=== PATIENT | male | born 1970 | race African-American/Black ===

== ENCOUNTER 2018-08-28 09:20 | Emergency (ER) | payer MEDICAID, OTHER ==
[~2018-08-28] VITALS: Ht 205.7 cm; Wt 146.0 kg
[2018-08-28 10:29] LABS: CLARITY URINE CLEAR (CLEAR); COLOR URINE DARK YELLOW (YELLOW); KETONES URINE TRACE (NEGATIVE); LEUKOCYTE ESTERASE URINE NEGATIVE (NEGATIVE); NITRITE URINE NEGATIVE (NEGATIVE); OCCULT BLOOD URINE NEGATIVE (NEGATIVE); PROTEIN URINE 1+ (NEGATIVE); SPECIFIC GRAVITY URINE 1.037 (1.005-1.030)
[2018-08-28] MEDS ORDERED: ATENOLOL 50 MG TABLET PO ONE (11:45)
[2018-08-28] MEDS ORDERED: ALLOPURINOL 300 MG TABLET PO ONE (11:45)
[2018-08-28] MEDS ORDERED: COLCHICINE 0.6MG TABLET PO ONE (11:45)
[2018-08-28 12:18] LABS: CHLORIDE 105 mEq/L (98-107)
[2018-08-28 12:24] LABS: BASOPHILS % 0.6 % (0.0-2.0); HEMATOCRIT. 42.3 % (42.0-52.0); HEMOGLOBIN. 13.9 g/dL (14.0-18.0); MEAN CORPUSCULAR HEMOGLOBIN 30.2 pg (28.0-32.0); MEAN PLATELET VOLUME 7.5 fl (7.4-10.4); MONOCYTES % 13.7 % (2.0-8.0); NEUTROPHILS % 75.7 % (40.0-76.0); PLATELET 406 x1000/uL (130-400); RED BLOOD CELL COUNT 4.61 mill/uL (4.7-6.1); RED CELL DISTRIBUTION WIDTH 14.8 % (11.6-14.6)
[2018-08-28 12:35] LABS: INR 1.1; PROTHROMBIN TIME 10.6 sec (9.1-11.1)
[2018-08-28] MEDS ORDERED: IBUPROFEN 800MG TABLET PO ONE (13:15)
[2018-08-28] MEDS ORDERED: OXYCODONE HCL/ACETAMINOPHEN 5/325MG TABLET PO ONE (13:15)
[2018-08-28 13:35] VITALS: BP 182/122
== END 2018-08-28 14:45 | disposition home or self-care (01) ==
LOC: ER 09:20
DX: M10.9 Gout, unspecified (principal); Z76.0 Encounter for issue of repeat prescription; E78.00 Pure hypercholesterolemia, unspecified; I10 Essential (primary) hypertension
CPT/HCPCS: 36415; 71045; 73560; 86850; 86900; 99284

== ENCOUNTER 2024-09-07 09:49 | Inpatient (IN) | payer MEDICAID, OTHER ==
[~2024-09-07] VITALS: Ht 205.7 cm; Wt 119.3 kg
[2024-09-07 10:39] LABS: CHLORIDE 98 mEq/L (98-107); POTASSIUM 3.2 mEq/L (3.5-5.1); SODIUM 140 mEq/L (136-145)
[2024-09-07 10:40] LABS: CALCIUM 9.3 mg/dL (8.7-10.4); CARBON DIOXIDE 30 mEq/L (21-32)
[2024-09-07 10:43] LABS: BASOPHILS % 0.4 % (0.0-2.0); EOSINOPHILS % 0.3 % (0.0-5.0); HEMOGLOBIN. 16.6 g/dL (14.0-18.0); MEAN CORPUSCULAR HEMOGLOBIN 31.2 pg (28.0-32.0); MEAN CORPUSCULAR HGB CONC 33.2 g/dL (31.0-37.0); MEAN PLATELET VOLUME 8.8 fl (7.4-10.4); MONOCYTES % 10.7 % (2.0-8.0); NEUTROPHILS % 64.6 % (40.0-76.0); PLATELET 171 x1000/uL (130-400); RED BLOOD CELL COUNT 5.32 mill/uL (4.7-6.1); RED CELL DISTRIBUTION WIDTH 18.4 % (11.6-14.6); WHITE BLOOD COUNT 8.3 x1000/uL (4.5-11.0)
[2024-09-07 10:46] LABS: TROPONIN I HIGH SENSITIVITY 10 ng/L (3.0-53)
[2024-09-07 11:04] LABS: CREATININE 1.9 mg/dL (0.6-1.3); GLUCOSE 172 mg/dL (70-105); UREA NITROGEN BLOOD 16 mg/dL (9-23)
[2024-09-07] MEDS ORDERED: ONDANSETRON HCL 4MG/2ML INJ IV PRN (13:30)
[2024-09-07] MEDS ORDERED: HYDROCODONE/ACETAMINOPHEN 5/325MG TABLET PO PRN (13:30)
[2024-09-07] MEDS ORDERED: GUAIFENESIN 200MG/10ML SUGAR FREE UDC PO PRN (13:30)
[2024-09-07] MEDS ORDERED: DOCUSATE SODIUM 100MG CAPSULE PO PRN (13:30)
[2024-09-07] MEDS ORDERED: NALOXONE HCL 0.4MG/ML VIAL IV PRN (14:00)
[2024-09-07] MEDS ORDERED: POTASSIUM CHLORIDE 40 MEQ in DEXT 5% WATER 230 ML IV ONE (14:00)
[2024-09-07] MEDS: SODIUM CHLORIDE 0.45% 1,000 ML IV SCH (14:23)
[2024-09-07] MEDS ORDERED: IOHEXOL-350 100 ML BOTTLE ONE (14:50)
[2024-09-07] MEDS: ENOXAPARIN 150MG/ML SYR SUBCUT NR (14:57)
[2024-09-07] MEDS: POTASSIUM CHLORIDE 20 MEQ in DEXT 5% WATER 90 ML IV SCH (15:01)
[2024-09-07] MEDS ORDERED: HEPARIN 25,000 UNITS PREMIX 250 ML IV PRN ×2 (15:15→17:00)
[2024-09-07 15:38] LABS: PROTHROMBIN TIME 11.3 sec (9.6-11.0)
[2024-09-07 16:03] LABS: BASOPHILS % 0.7 % (0.0-2.0); EOSINOPHILS % 0.1 % (0.0-5.0); HEMATOCRIT. 46.6 % (42.0-52.0); HEMOGLOBIN. 15.6 g/dL (14.0-18.0); LYMPHOCYTES % 18.9 % (20.0-50.0); MEAN CORPUSCULAR HEMOGLOBIN 31.2 pg (28.0-32.0); MEAN CORPUSCULAR HGB CONC 33.5 g/dL (31.0-37.0); MEAN CORPUSCULAR VOLUME 93.3 fL (80.0-94.0); MEAN PLATELET VOLUME 8.9 fl (7.4-10.4); MONOCYTES % 12.9 % (2.0-8.0); NEUTROPHILS % 67.4 % (40.0-76.0); PLATELET 159 x1000/uL (130-400); RED CELL DISTRIBUTION WIDTH 18.1 % (11.6-14.6); WHITE BLOOD COUNT 9.3 x1000/uL (4.5-11.0)
[2024-09-07 16:14] LABS: CREATINE KINASE MB FRACTION 0.7 ng/mL (0.5-3.6)
[2024-09-07 16:17] LABS: PARTIAL THROMBOPLASTIN TIME 24.8 sec (23.4-31.0)
[2024-09-07] MEDS ORDERED: HEPARIN 5000 UNITS/ML VIAL IV SCH (17:00)
[2024-09-07] MEDS ORDERED: HEPARIN BOLUS PRN aPTT 37-44 IV ×3 (17:15→20:00)
[2024-09-07] MEDS ORDERED: HEPARIN 80 UNITS/KG BOLUS IV SCH (17:15)
[2024-09-07] MEDS ORDERED: HEPARIN BOLUS PRN aPTT <36 IV ×3 (17:15→20:00)
[2024-09-07] MEDS ORDERED: HEPARIN 25,000 UNITS PREMIX 250 ML IV SCH (17:15)
[2024-09-07] MEDS: HEPARIN 80 UNITS/KG BOLUS IV SCH (17:39)
[2024-09-07] MEDS ORDERED: ENOXAPARIN 30MG/0.3ML SYR SUBCUT SCH (18:00)
[2024-09-07] MEDS: HEPARIN 25,000 UNITS PREMIX 250 ML IV SCH (18:12)
[2024-09-07] MEDS: FAMOTIDINE 20MG TABLET PO SCH (20:59)
[2024-09-07 22:29] VITALS: BP 111/69; PULSE 69; RESP 16; TEMP 37.5
[2024-09-07] MEDS ORDERED: HEPARIN 5000 UNITS/ML VIAL IV PRN ×2 (23:00)
[2024-09-08] VITALS: BP 141/94; PULSE 73; RESP 20; TEMP 36.4; O2SAT 99
[2024-09-08 00:12] LABS: CREATINE KINASE 131 IU/L (46-171); CREATINE KINASE MB FRACTION < 0.5 ng/mL (0.5-3.6); TROPONIN I HIGH SENSITIVITY 6 ng/L (3.0-53)
[2024-09-08 04:00] VITALS: BP 126/73; PULSE 70; RESP 22; TEMP 36.9; O2SAT 95
[2024-09-08 08:00] VITALS: BP 138/86; PULSE 70; RESP 20; TEMP 36.7; O2SAT 99
[2024-09-08 08:38] LABS: BASOPHILS % 0.5 % (0.0-2.0); EOSINOPHILS % 1.2 % (0.0-5.0); HEMATOCRIT. 43.7 % (42.0-52.0); HEMOGLOBIN. 14.6 g/dL (14.0-18.0); LYMPHOCYTES % 32.1 % (20.0-50.0); MEAN CORPUSCULAR HGB CONC 33.3 g/dL (31.0-37.0); MEAN PLATELET VOLUME 7.8 fl (7.4-10.4); NEUTROPHILS % 54.2 % (40.0-76.0); PLATELET 120 x1000/uL (130-400); RED CELL DISTRIBUTION WIDTH 18.5 % (11.6-14.6); WHITE BLOOD COUNT 8.2 x1000/uL (4.5-11.0)
[2024-09-08 09:20] LABS: HEPATITIS B SURFACE ANTIGEN NEGATIVE (Negative)
[2024-09-08 09:41] LABS: HEPATITIS C AB NON REACTIVE (Neg) (Negative)
[2024-09-08 10:24] LABS: CALCIUM 8.2 mg/dL (8.7-10.4); CARBON DIOXIDE 30 mEq/L (21-32); CHLORIDE 99 mEq/L (98-107); POTASSIUM 2.9 mEq/L (3.5-5.1); SODIUM 137 mEq/L (136-145)
[2024-09-08 10:29] LABS: CREATININE 1.1 mg/dL (0.6-1.3); GLUCOSE 98 mg/dL (70-105)
[2024-09-08 10:30] LABS: LDL CHOLESTEROL 27 mg/dL (5-100); TRIGLYCERIDE 58 mg/dL (0-150); UREA NITROGEN BLOOD 15 mg/dL (9-23)
[2024-09-08 10:31] LABS: ALANINE AMINOTRANSFERASE 53 IU/L (10-49); ALBUMIN 3.3 g/dL (3.2-4.8); ASPARTATE AMINOTRANSFERASE 91 IU/L (<34); CHOLESTEROL 121 mg/dL (<200); HDL CHOLESTEROL 71 mg/dL (>55)
[2024-09-08 10:32] LABS: BILIRUBIN DIRECT 0.4 mg/dL (<=3.0); BILIRUBIN TOTAL 1.2 mg/dL (0.1-1.0); PROTEIN TOTAL 5.7 g/dL (6.0-8.3)
[2024-09-08 10:34] LABS: T4 FREE 1.28 ng/dL (0.89-1.76); THYROID STIMULATING HORMONE 0.83 uIU/mL (0.55-4.78)
[2024-09-08 12:00] VITALS: BP 135/75; PULSE 85; RESP 20; TEMP 36.7; O2SAT 98
[2024-09-08] MEDS: POTASSIUM CHLORIDE 20MEQ TABLET SR PO NR (14:37)
[2024-09-08] MEDS: ENOXAPARIN 100MG/ML SYR SUBCUT SCH (14:38)
[2024-09-08 16:00] VITALS: BP 130/78; PULSE 81; RESP 18; TEMP 36.3; O2SAT 98
[2024-09-08] MEDS ORDERED: METF-414 PO (18:21)
[2024-09-08] MEDS ORDERED: COLC0.6C3 PO (18:21)
[2024-09-08] MEDS ORDERED: ATEN50TA PO (18:21)
[2024-09-08] MEDS ORDERED: BUPR-74 PO (18:21)
[2024-09-08] MEDS ORDERED: TERA2CAP4 PO (18:21)
[2024-09-08] MEDS ORDERED: ATOR40TA70 PO (18:21)
[2024-09-08] MEDS ORDERED: CITA10SO PO (18:21)
[2024-09-08] MEDS ORDERED: AMLO5TAB5 PO (18:21)
[2024-09-08] MEDS ORDERED: ALLO100T PO (18:21)
[2024-09-08 20:00] VITALS: BP 141/82; PULSE 73; RESP 18; TEMP 37; O2SAT 96
[2024-09-09] VITALS: BP 137/84; PULSE 80; RESP 18; TEMP 36.8; O2SAT 97
[2024-09-09 04:00] VITALS: BP 102/61; PULSE 76; RESP 18; TEMP 36.6; O2SAT 100
[2024-09-09 07:46] LABS: BASOPHILS % 0.4 % (0.0-2.0); EOSINOPHILS % 1.8 % (0.0-5.0); HEMATOCRIT. 43.8 % (42.0-52.0); HEMOGLOBIN. 14.3 g/dL (14.0-18.0); LYMPHOCYTES % 34.6 % (20.0-50.0); MEAN CORPUSCULAR HGB CONC 32.8 g/dL (31.0-37.0); MEAN CORPUSCULAR VOLUME 94.4 fL (80.0-94.0); MEAN PLATELET VOLUME 8.6 fl (7.4-10.4); MONOCYTES % 12.2 % (2.0-8.0); PLATELET 125 x1000/uL (130-400); RED BLOOD CELL COUNT 4.63 mill/uL (4.7-6.1); RED CELL DISTRIBUTION WIDTH 18.6 % (11.6-14.6); WHITE BLOOD COUNT 6.8 x1000/uL (4.5-11.0)
[2024-09-09 08:00] VITALS: BP 129/75; PULSE 78; RESP 18; TEMP 36.7; O2SAT 99
[2024-09-09 08:25] LABS: CALCIUM 8.4 mg/dL (8.7-10.4); CARBON DIOXIDE 28 mEq/L (21-32); CHLORIDE 101 mEq/L (98-107); SODIUM 139 mEq/L (136-145)
[2024-09-09 08:31] LABS: GLUCOSE 84 mg/dL (70-105); UREA NITROGEN BLOOD 12 mg/dL (9-23)
[2024-09-09 09:56] LABS: POTASSIUM 2.8 mEq/L (3.5-5.1)
[2024-09-09] MEDS: POTASSIUM CHLORIDE 20 MEQ in DEXT 5% WATER 100 ML IV SCH (10:06)
[2024-09-09] MEDS: POTASSIUM CHLORIDE 20MEQ TABLET SR PO NR (10:49)
[2024-09-09 12:00] VITALS: BP 126/81; PULSE 85; RESP 18; TEMP 36.7; O2SAT 99
[2024-09-09 16:00] VITALS: BP 154/89; PULSE 85; RESP 18; TEMP 36.8; O2SAT 96
[2024-09-09 17:41] LABS: POTASSIUM 3.6 mEq/L (3.5-5.1)
[2024-09-09] MEDS: ACETAMINOPHEN 650MG/20.3ML UDC GT PRN (18:49)
[2024-09-09] MEDS: CLONIDINE 0.1MG TABLET PO PRN (18:49)
[2024-09-09 18:53] VITALS: BP 145/95; PULSE 92; TEMP 99; O2SAT 99
== END 2024-09-09 20:55 | disposition short-term general hospital (02) | DRG 176 ==
LOC: ER 09:49 → 8WST 11:55 → EDBEDREQTM 12:02 → EDBEDREQ 12:02
PROVIDERS: ADMIT Internal Medicine; ATTEND Internal Medicine
DX: I26.99 Other pulmonary embolism without acute cor pulmonale (principal); I82.411 Acute embolism and thrombosis of right femoral vein; N17.9 Acute kidney failure, unspecified; D62 Acute posthemorrhagic anemia; I82.431 Acute embolism and thrombosis of right popliteal vein; E87.6 Hypokalemia; E78.5 Hyperlipidemia, unspecified; I10 Essential (primary) hypertension; E11.65 Type 2 diabetes mellitus with hyperglycemia; I48.91 Unspecified atrial fibrillation; N40.0 Benign prostatic hyperplasia without lower urinary tract symptoms; E78.00 Pure hypercholesterolemia, unspecified; Z79.84 Long term (current) use of oral hypoglycemic drugs; Z79.899 Other long term (current) drug therapy
CPT/HCPCS: 36415; 71045; 71275; 80048; 80061; 80076; 82550; 82553; 83036; 83880; 84132; 84439; 84443; 84484; 85025; 86705; 87340; 93005; 93970; 99291; A4606; J1644; J1650; J3480; J7060; Q9967